=== PATIENT | male | born 1955 | race Caucasian/White ===

== ENCOUNTER 2024-03-21 01:21 | Emergency (ER) | payer MEDICARE, BC ==
[2024-03-21] VITALS (12 sets, daily range): BP systolic 132–153; BP diastolic 73–96
[~2024-03-21] VITALS: Ht 180.3 cm; Wt 95.0 kg
[~2024-03-21 01:21] MED LIST: CIALIS5 MG PO; FLEXERIL5 M1 PO; NEXIUM40 M1 PO; NORVASC PO; PROSCAR5 MG PO; TAMSULOSIN0.4 MG PO; TOPROL XL25 M1 PO; TRAMADOL HYDROC50 M1 PO
[2024-03-21] MEDS ORDERED: PROTONIX40 M2 PO (01:30)
[2024-03-21] MEDS ORDERED: SODIUM CHLORIDE 0.9% 1,000 ML IV STA (01:45)
[2024-03-21 02:42] LABS: BASO% 0.8 % (0-3); EOS% 4.4 % (0-8); HEMATOCRIT 43.1 % (39.0-50.0); HEMOGLOBIN 14.5 g/dl (14.0-18.0); IMMATURE GRANULOCYTES 0.5 % (0.0-5.0); LYMPH% 29.4 % (15-41); MEAN CELL VOLUME 92.9 fL CALC (80.0-100.0); MEAN CORPUSCULAR HGB 31.3 pG CALC (26.0-32.0); MEAN CORPUSCULAR HGB CONC 33.6 g/dL CAL (32.0-36.0); MONO% 13.4 % (2-13); NEUT# 3.39 thou/uL (1.82-7.42); NEUT% 51.5 % (42-76); RED BLOOD COUNT 4.64 mill/uL (4.70-6.10); RED CELL DISTRI WIDTH 12.9 % (11.5-15.5); URINE BILIRUBIN - DIPSTICK Negative (NEGATIVE); URINE BLOOD DIPSTICK Large (NEGATIVE); URINE GLUCOSE - DIPSTICK 100 mg/dL (NEGATIVE); URINE KETONE Negative (NEGATIVE); URINE NITRITE - DIPSTICK Negative (Negative); URINE PROTEIN - DIPSTICK Negative (NEG-TRACE); URINE UROBILINOGEN - DIPSTICK 0.2 E.U./dL (0.2)
[2024-03-21 02:44] LABS: URINE COLOR Yellow; URINE LEUK ESTERASE Negative (NEGATIVE)
[2024-03-21 02:49] LABS: URINE BACTERIA FEW hpf; URINE EPITHELIAL CELLS FEW EPI/hpf (0-FEW)
[2024-03-21 02:59] LABS: ALBUMIN 4.4 g/dL (3.2-5.0); BILIRUBIN, TOTAL 0.5 mg/dL (0.2-1.3); POTASSIUM 4.1 mmol/l (3.5-5.1); TOTAL PROTEIN 7.8 g/dL (6.3-8.2)
[2024-03-21] MEDS ORDERED: TAMSULOSIN0.4 MG PO (05:24)
== END 2024-03-21 05:45 | disposition home or self-care (01) ==
LOC: ED 01:21
PROVIDERS: Family Medicine
DX: R31.9 Hematuria, unspecified (principal); N40.0 Benign prostatic hyperplasia without lower urinary tract symptoms; I10 Essential (primary) hypertension; I48.91 Unspecified atrial fibrillation
CPT/HCPCS: Q9967